=== PATIENT | female | born 2005 | race Caucasian/White ===

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

== ENCOUNTER 2024-08-29 12:52 | Emergency (ER) | payer OTHER, BC ==
[~2024-08-29] VITALS: Wt 86.6 kg
[~2024-08-29 12:52] MED LIST changes: +PREDNISONE20 M1 PO; +ZITHROMAX250 MG PO
[2024-08-29] MEDS ORDERED: IBUPROFEN 800 MG TAB PO ONE (14:00)
[2024-08-29] MEDS ORDERED: TAMIFLU 75MG CA75 MG PO (14:50)
[2024-08-30] MEDS ORDERED: TAMIFLU 75MG CA75 MG PO (15:55)
== END 2024-08-29 14:48 | disposition home or self-care (01) ==
LOC: ED 12:52
DX: J10.1 Influenza due to other identified influenza virus with other respiratory manifestations (principal); Z20.822 Contact with and (suspected) exposure to COVID-19; Z98.890 Other specified postprocedural states

== ENCOUNTER 2025-01-20 21:32 | Emergency (ER) | payer OTHER, BC ==
[~2025-01-20] VITALS: Ht 170.1 cm; Wt 93.0 kg
[~2025-01-20 21:32] MED LIST changes: +TAMIFLU 75MG CA75 MG PO
[2025-01-20] MEDS ORDERED: IBUPROFEN 600 MG TAB PO ONE (21:50)
[2025-01-20] MEDS ORDERED: ACETAMINOPHEN 325 MG TAB PO ONE (21:50)
[2025-01-20] MEDS ORDERED: NAPROSYN500 MG PO (22:39)
== END 2025-01-20 23:15 | disposition home or self-care (01) ==
LOC: ED 21:32
DX: S93.402A Sprain of unspecified ligament of left ankle, initial encounter (principal); Z79.899 Other long term (current) drug therapy; W01.0XXA Fall on same level from slipping, tripping and stumbling without subsequent striking against object, initial encounter; Y93.89 Activity, other specified; Y92.89 Other specified places as the place of occurrence of the external cause; Y99.8 Other external cause status